=== PATIENT | female | born 1960 | race Caucasian/White ===

== ENCOUNTER 2017-10-16 04:22 | Inpatient (IN) | payer MEDICAID, OTHER ==
[2017-10-16] VITALS (32 sets, daily range): BP systolic 82–131; BP diastolic 30–75
[~2017-10-16] VITALS: Ht 162.6 cm; Wt 124.0 kg
[2017-10-16 05:01] LABS: Hemoglobin 8.2 g/dL (12.2-16.2); Mean Corpuscular Hemoglobin 30.8 pg (28.0-32.0)
[2017-10-16 05:03] LABS: Hematocrit 26.8 % (36.0-46.0); Mean Corpuscular Hgb Conc. 30.7 g/dL (32.0-36.0); Mean Corpuscular Volume 100.4 fL (80.0-100.0); Platelet Count (auto) 169 10^3/uL (140-450); Red Blood Cells 2.67 10^6/uL (4.0-5.20); Red Cell Distribution Width 16.2 % (11.8-14.3); White Blood Cell 21.7 10^3/uL (4.4-10.8)
[2017-10-16] MEDS: EPINEPHrine HCL 250 ML IV SCH (05:03)
[2017-10-16] MEDS ORDERED: SODIUM BICARBONATE 8.4% INJ 50ML SYRINGE ONE ×4 (05:05→12:32)
[2017-10-16 05:10] LABS: Albumin 2.6 g/dL (3.4-5.0); Calcium 7.8 mg/dL (8.5-10.1); Magnesium 2.9 mg/dL (1.6-2.6)
[2017-10-16] MEDS ORDERED: SODIUM BICARBONATE 50ML VIAL 100 ML in D5W 5% 1,000 ML IV ONE (05:15)
[2017-10-16] MEDS ORDERED: cefTRIAXone 1GM/10ml IVPUSH 10 ML IV ONE (05:15)
[2017-10-16] MEDS ORDERED: VANCOMYCIN 1GM/250ML 250 ML IV ONE (05:15)
[2017-10-16 05:18] LABS: Basophils % (manual) 0 (0.0-2.0); Bilirubin, Total 1.1 mg/dL (0.2-1.0); Eosinophils % (manual) 0 (0-7); Myelocytes % 0; Total Protein 7.4 g/dL (6.4-8.2)
[2017-10-16 05:19] LABS: Blast Cells 0; Promyelocytes % 0; Reactive Lymphocytes 0
[2017-10-16 05:21] LABS: BUN/Creatinine Ratio 11.3
[2017-10-16 05:24] LABS: Potassium 6.3 mmol/L (3.5-5.1)
[2017-10-16] MEDS ORDERED: DEXTROSE (50%) 50ML SYRG IV ONE (05:30)
[2017-10-16] MEDS ORDERED: InsuLIN REG 1unit/0.01ml Soln (100units/ml) IV ONE (05:30)
[2017-10-16] MEDS ORDERED: DEXTROSE 50% SYRINGE 50 ML IV ONE (05:31)
[2017-10-16 05:39] LABS: Band Neutrophils % (manual) 3; Lymphocytes % (manual) 19 (10.0-50.0); Metamyelocytes % 1; Monocytes % (manual) 8 (0-12)
[2017-10-16] MEDS ORDERED: ONDANSETRON HCL 4 MG/2 ML VIAL IV ONE (06:15)
[2017-10-16] MEDS ORDERED: MORPHINE SULFATE 4 MG/ML SYR/VIAL IV ONE (06:15)
[2017-10-16 06:48] LABS: Alcohol, Urine < 3.0 mg/dL (0-5); Amphetamine Screen, Urine NEGATIVE (NEGATIVE); Barbiturate Scree,Urine NEGATIVE (NEGATIVE); Benzodiazephine Screen, Urine NEGATIVE (NEGATIVE); Cannabinoid Screen, Urine NEGATIVE (NEGATIVE); Cocaine Screen, Urine NEGATIVE (NEGATIVE); Opiate Scree,Urine NEGATIVE (NEGATIVE); Phencyclidine Screen, Urine NEGATIVE (NEGATIVE)
[2017-10-16 06:49] LABS: Lactic Acid w/Reflex 8.6 mmol/L (0.4-2.0)
[2017-10-16 06:59] LABS: Urine Bacteria MANY /hpf (None Seen); Urine Blood 2+ /uL (Negative); Urine Specific Gravity 1.013 (1.001-1.035); Urine WBC 14625 /hpf (0 - 5); Urine WBC Clumps PRESENT /hpf (None Seen)
[2017-10-16] MEDS ORDERED: SODIUM BICARBONATE 50ML VIAL 100 ML in SODIUM CHL 0.9% 1,000 ML IV SCH (07:00)
[2017-10-16] MEDS ORDERED: NITROGLYCERIN 0.4 MG SL TAB SL PRN (07:00)
[2017-10-16] MEDS ORDERED: ONDANSETRON HCL 4 MG/2 ML VIAL IV PRN (07:00)
[2017-10-16] MEDS ORDERED: ACETAMINOPHEN 325 MG TAB PO PRN (07:00)
[2017-10-16] MEDS ORDERED: MORPHINE SULFATE 4 MG/ML SYR/VIAL IV PRN (07:00)
[2017-10-16] MEDS ORDERED: MANNITOL 20% SOLN 100 gm/500ml 250 ML IV ONE (07:15)
[2017-10-16] MEDS ORDERED: DEXAMETHASONE SOD PHOS 10MG/1ML VIAL INJ IV ONE (07:15)
[2017-10-16] MEDS ORDERED: SODIUM BICARBONATE 8.4 % INJ 50ML VIAL IV ONE ×2 (07:30→12:45)
[2017-10-16] MEDS ORDERED: SODIUM BICARB IV SCH ×2 (08:00→15:30)
[2017-10-16] MEDS ORDERED: D5W IV SCH ×2 (08:00→15:30)
[2017-10-16] MEDS ORDERED: HEPARIN 1,000 UNITS/ml 1ML VIAL ONE (08:14)
[2017-10-16] MEDS ORDERED: MANNITOL 20 % (20GM/100ML) 500 ML IV ONE (08:23)
[2017-10-16] MEDS ORDERED: HEPARIN 1,000 UNITS/ml 1ML VIAL IV ONE (08:30)
[2017-10-16] MEDS: PIPERACILLIN-TAZOB 2.25GM 50 ML IV SCH ×3 (09:07→21:55)
[2017-10-16] MEDS: PANTOPRAZOLE 40 MG/10 ML VIAL IV SCH (09:12)
[2017-10-16] MEDS: ENOXAPARIN SOD 30 MG/0.3 ML SYRINGE SC SCH (09:12)
[2017-10-16] MEDS ORDERED: NOREPINEPHRINE 8 MG/250ML KIT 250 ML IV ONE (09:21)
[2017-10-16] MEDS ORDERED: MIDAZOLAM DRIP 50 mg/50mL 50 ML IV ONE (09:21)
[2017-10-16] MEDS: MIDAZOLAM DRIP 50 mg/50mL 50 ML IV SCH ×2 (09:25→23:31)
[2017-10-16] MEDS: NOREPINEPHRINE 8 MG/250ML KIT 250 ML IV SCH (09:25)
[2017-10-16] MEDS: LINEZOLID 600 MG/300 ML IV BAG IV SCH ×2 (10:12→21:55)
[2017-10-16] MEDS ORDERED: CALCIUM CHLOR(10%) 100MG/ML 10ML SYRINGE IV ONE ×2 (12:41→17:38)
[2017-10-16] MEDS ORDERED: EPINEPHrine HCL 1 MG/10 ML SYRG IV ONE ×2 (12:41→17:38)
[2017-10-16] MEDS ORDERED: SODIUM BICARBONATE 8.4% INJ 50ML SYRINGE IV ONE ×2 (12:41→17:38)
[2017-10-16] MEDS ORDERED: AMIODARONE HCL (50 MG/ ML) 3 ML VIAL IV ONE (12:41)
[2017-10-16] MEDS ORDERED: ATROPINE SULF 0.5 MG/5ML SYR IV ONE (12:41)
[2017-10-16] MEDS ORDERED: DOPamine 1600mCg/ml 400MG/250ml NSorD5 KIT/BAG IV ONE (17:38)
[2017-10-16 18:49] LABS: Calcium 5.9 mg/dL (8.5-10.1)
[2017-10-16 18:51] LABS: Potassium 2.9 mmol/L (3.5-5.1)
[2017-10-16 19:08] LABS: BUN/Creatinine Ratio 11.4
[2017-10-16] MEDS: POTASSIUM CHL 20MEQ/100ML 100 ML IV SCH ×2 (20:09→20:34)
[2017-10-16] MEDS: SODIUM CHLORIDE 0.9% 1,000 ML IV SCH (20:09)
[2017-10-17] VITALS (107 sets, daily range): BP systolic 72–166; BP diastolic 38–93
[2017-10-17] MEDS: NOREPINEPHRINE 8 MG/250ML KIT 250 ML IV SCH ×4 (03:24→21:15)
[2017-10-17 04:09] LABS: Hemoglobin 7.6 g/dL (12.2-16.2); Mean Corpuscular Hgb Conc. 33.7 g/dL (32.0-36.0); Red Cell Distribution Width 14.7 % (11.8-14.3)
[2017-10-17 04:11] LABS: Hematocrit 22.6 % (36.0-46.0); Mean Corpuscular Hemoglobin 30.3 pg (28.0-32.0); Mean Corpuscular Volume 89.9 fL (80.0-100.0); Red Blood Cells 2.51 10^6/uL (4.0-5.20)
[2017-10-17] MEDS: MIDAZOLAM DRIP 50 mg/50mL 50 ML IV SCH ×4 (04:18→22:35)
[2017-10-17 04:20] LABS: Albumin 2.3 g/dL (3.4-5.0); Platelet Count (auto) 94 10^3/uL (140-450); Potassium 3.6 mmol/L (3.5-5.1); White Blood Cell 32.1 10^3/uL (4.4-10.8)
[2017-10-17 04:23] LABS: Basophils % (manual) 0 (0.0-2.0); Blast Cells 0; Eosinophils % (manual) 0 (0-7); Metamyelocytes % 0; Myelocytes % 0; Promyelocytes % 0; Reactive Lymphocytes 0
[2017-10-17 04:28] LABS: Bilirubin, Total 0.9 mg/dL (0.2-1.0); Total Protein 6.2 g/dL (6.4-8.2)
[2017-10-17 04:43] LABS: BUN/Creatinine Ratio 11.9
[2017-10-17 04:44] LABS: Calcium 5.3 mg/dL (8.5-10.1)
[2017-10-17 05:06] LABS: Band Neutrophils % (manual) 18; Lymphocytes % (manual) 1 (10.0-50.0)
[2017-10-17 05:07] LABS: Monocytes % (manual) 4 (0-12)
[2017-10-17] MEDS ORDERED: CALCIUM GLUC 4.65meq/50ml D5AE 50 ML IV ONE (05:30)
[2017-10-17] MEDS: PIPERACILLIN-TAZOB 2.25GM 50 ML IV SCH ×3 (06:00→22:00)
[2017-10-17] MEDS: SODIUM CHLORIDE 0.9% 1,000 ML IV SCH ×2 (06:35→16:24)
[2017-10-17] MEDS ORDERED: SODIUM CHL 0.9% 1000 ML BAG XX ONE (07:45)
[2017-10-17] MEDS: PANTOPRAZOLE 40 MG/10 ML VIAL IV SCH (09:58)
[2017-10-17] MEDS: LINEZOLID 600MG/300ML 300 ML IV SCH ×2 (09:59→22:00)
[2017-10-17] MEDS: EPINEPHrine HCL 250 ML IV SCH (10:03)
[2017-10-17 10:25] LABS: Hematocrit 25.9 % (36.0-46.0); Hemoglobin 8.5 g/dL (12.2-16.2)
[2017-10-17] MEDS: ENOXAPARIN SOD 30 MG/0.3 ML SYRINGE SC SCH (10:27)
[2017-10-17 11:41] LABS: Lactic Acid w/Reflex 11.6 mmol/L (0.4-2.0)
[2017-10-17] MEDS ORDERED: SODIUM CHLORIDE 0.9% 1,000 ML IV ONE (13:00)
[2017-10-17] MEDS ORDERED: CALCIUM CHL 100MG/ML 1,000 MG in D5W 5% 100 ML IV ONE (13:00)
[2017-10-17 15:16] LABS: INR 1.76 (0.9-1.15); Prothrombin Time 19.3 sec (9.37-12.3)
[2017-10-18] VITALS (105 sets, daily range): BP systolic 81–217; BP diastolic 42–109
[2017-10-18] MEDS: PIPERACILLIN-TAZOB 2.25GM 50 ML IV SCH ×3 (06:00→22:01)
[2017-10-18 09:44] LABS: Hematocrit 20.2 % (36.0-46.0)
[2017-10-18 09:46] LABS: Mean Corpuscular Hgb Conc. 32.6 g/dL (32.0-36.0); Platelet Count (auto) 76 10^3/uL (140-450); Red Blood Cells 2.19 10^6/uL (4.0-5.20); Red Cell Distribution Width 14.9 % (11.8-14.3)
[2017-10-18 09:51] LABS: INR 1.27 (0.9-1.15); Prothrombin Time 13.9 sec (9.37-12.3)
[2017-10-18 10:03] LABS: Hemoglobin 6.6 g/dL (12.2-16.2); White Blood Cell 32.8 10^3/uL (4.4-10.8)
[2017-10-18 10:06] LABS: BUN/Creatinine Ratio 10.9; Calcium 6.1 mg/dL (8.5-10.1); Potassium 3.6 mmol/L (3.5-5.1)
[2017-10-18 10:09] LABS: Basophils % (manual) 0 (0.0-2.0); Eosinophils % (manual) 0 (0-7)
[2017-10-18 10:09] LABS: Lactic Acid w/Reflex 2.1 mmol/L (0.4-2.0)
[2017-10-18] MEDS: EPINEPHrine HCL 250 ML IV SCH (10:09)
[2017-10-18 10:10] LABS: Blast Cells 0; Metamyelocytes % 0; Myelocytes % 0; Promyelocytes % 0; Reactive Lymphocytes 0
[2017-10-18] MEDS: SODIUM CHLORIDE 0.9% 1,000 ML IV SCH (10:10)
[2017-10-18] MEDS: PANTOPRAZOLE 40 MG/10 ML VIAL IV SCH (10:48)
[2017-10-18] MEDS: MIDAZOLAM DRIP 50 mg/50mL 50 ML IV SCH ×2 (10:54→22:01)
[2017-10-18 12:35] LABS: Band Neutrophils % (manual) 11; Lymphocytes % (manual) 17 (10.0-50.0); Monocytes % (manual) 7 (0-12)
[2017-10-18] MEDS: NOREPINEPHRINE BITARTRATE 16 MG in D5W 5% 250 ML IV SCH (13:04)
[2017-10-18] MEDS ORDERED: PIPERACILLIN-TAZOB 0.75 GM in D5W 5% 50 ML IV SCH (13:30)
[2017-10-19] VITALS (105 sets, daily range): BP systolic 62–195; BP diastolic 34–100
[2017-10-19] MEDS: SODIUM CHLORIDE 0.9% 1,000 ML IV SCH ×3 (00:54→20:00)
[2017-10-19] MEDS: EPINEPHrine HCL 250 ML IV SCH (04:30)
[2017-10-19 04:35] LABS: Basophils # (auto) 0 uL; Basophils % (auto) 0.1 % (0.0-2.0); Eosinophils # (auto) 0 uL; Eosinophils % (auto) 0.1 % (0.0-7.0); Hematocrit 27.3 % (36.0-46.0); Lymphocytes # (auto) 2.1 uL; Lymphocytes % (auto) 7.3 % (10.0-50.0); Mean Corpuscular Hemoglobin 30.8 pg (28.0-32.0); Mean Corpuscular Hgb Conc. 32.9 g/dL (32.0-36.0); Mean Corpuscular Volume 93.7 fL (80.0-100.0); Monocytes # (auto) 1.2 uL; Neutrophils # (auto) 25.9 uL; Neutrophils % (auto) 88.5 % (37.0-80.0); Nucleated Red Blood Cells % 0.2 %; Platelet Count (auto) 73 10^3/uL (140-450); Red Blood Cells 2.91 10^6/uL (4.0-5.20); Red Cell Distribution Width 15.4 % (11.8-14.3); White Blood Cell 29.3 10^3/uL (4.4-10.8)
[2017-10-19 05:05] LABS: BUN/Creatinine Ratio 11.6; Magnesium 1.8 mg/dL (1.6-2.6); Potassium 3.9 mmol/L (3.5-5.1)
[2017-10-19] MEDS ORDERED: CALCIUM GLUC 4.65meq/50ml D5AE 50 ML IV ONE (06:15)
[2017-10-19] MEDS: PIPERACILLIN-TAZOB 2.25GM 50 ML IV SCH ×3 (06:39→22:24)
[2017-10-19] MEDS: NOREPINEPHRINE BITARTRATE 16 MG in D5W 5% 250 ML IV SCH ×2 (07:51→21:00)
[2017-10-19] MEDS: PANTOPRAZOLE 40 MG/10 ML VIAL IV SCH (10:31)
[2017-10-19] MEDS ORDERED: Novasource Renal 1 Liter GT SCH (16:30)
[2017-10-20] VITALS (106 sets, daily range): BP systolic 77–138; BP diastolic 48–83
[2017-10-20] MEDS: EPINEPHrine HCL 250 ML IV SCH (05:03)
[2017-10-20] MEDS: PIPERACILLIN-TAZOB 2.25GM 50 ML IV SCH (06:00)
[2017-10-20 06:26] LABS: Hematocrit 23.9 % (36.0-46.0); Platelet Count (auto) 81 10^3/uL (140-450); White Blood Cell 22.6 10^3/uL (4.4-10.8)
[2017-10-20 06:31] LABS: Mean Corpuscular Hemoglobin 31.2 pg (28.0-32.0); Mean Corpuscular Hgb Conc. 33.3 g/dL (32.0-36.0); Mean Corpuscular Volume 93.7 fL (80.0-100.0); Red Blood Cells 2.55 10^6/uL (4.0-5.20); Red Cell Distribution Width 15.1 % (11.8-14.3)
[2017-10-20 06:44] LABS: Band Neutrophils % (manual) 0; Basophils % (manual) 0 (0.0-2.0); Blast Cells 0; Metamyelocytes % 0; Myelocytes % 0; Promyelocytes % 0; Reactive Lymphocytes 0
[2017-10-20 06:55] LABS: BUN/Creatinine Ratio 11.8; Calcium 6.2 mg/dL (8.5-10.1); Potassium 3.2 mmol/L (3.5-5.1)
[2017-10-20 07:03] LABS: Eosinophils % (manual) 2 (0-7); Lymphocytes % (manual) 15 (10.0-50.0); Monocytes % (manual) 6 (0-12)
[2017-10-20] MEDS: NOREPINEPHRINE BITARTRATE 16 MG in D5W 5% 250 ML IV SCH (07:51)
[2017-10-20] MEDS: MIDAZOLAM DRIP 50 mg/50mL 50 ML IV SCH (09:14)
[2017-10-20] MEDS ORDERED: NOREPINEPHRINE 8 MG/250ML KIT 250 ML IV ONE (09:36)
[2017-10-20] MEDS: PANTOPRAZOLE 40 MG/10 ML VIAL IV SCH (09:55)
[2017-10-20] MEDS: NOREPINEPHRINE 8 MG/250ML KIT 250 ML IV SCH ×2 (10:00→21:25)
[2017-10-20] MEDS: SODIUM CHLORIDE 0.9% 1,000 ML IV SCH ×2 (14:35→22:23)
[2017-10-20] MEDS: POTASSIUM CHL 10% (20 MEQ/15ML) 15ml ORAL SOLN GT SCH ×2 (16:00→22:23)
[2017-10-20] MEDS: cefTRIAXone 1GM/10ml IVPUSH 10 ML IV SCH (16:00)
[2017-10-21] VITALS (80 sets, daily range): BP systolic 67–138; BP diastolic 36–80
[2017-10-21 03:49] LABS: Basophils # (auto) 0 uL; Basophils % (auto) 0.2 % (0.0-2.0); Eosinophils # (auto) 0.2 uL; Eosinophils % (auto) 0.8 % (0.0-7.0); Hematocrit 25.9 % (36.0-46.0); Hemoglobin 8.5 g/dL (12.2-16.2); Lymphocytes # (auto) 2.8 uL; Mean Corpuscular Hemoglobin 30.9 pg (28.0-32.0); Mean Corpuscular Hgb Conc. 32.9 g/dL (32.0-36.0); Mean Corpuscular Volume 93.9 fL (80.0-100.0); Monocytes # (auto) 0.9 uL; Monocytes % (auto) 4.8 % (0.0-12.0); Neutrophils # (auto) 14.8 uL; Neutrophils % (auto) 79.2 % (37.0-80.0); Nucleated Red Blood Cells % 0.4 %; Platelet Count (auto) 81 10^3/uL (140-450); Red Blood Cells 2.76 10^6/uL (4.0-5.20); Red Cell Distribution Width 15.3 % (11.8-14.3); White Blood Cell 18.6 10^3/uL (4.4-10.8)
[2017-10-21 04:05] LABS: BUN/Creatinine Ratio 12.5; Calcium 6.2 mg/dL (8.5-10.1); Potassium 3.4 mmol/L (3.5-5.1)
[2017-10-21] MEDS: EPINEPHrine HCL 250 ML IV SCH (05:03)
[2017-10-21] MEDS: NOREPINEPHRINE 8 MG/250ML KIT 250 ML IV SCH (06:34)
[2017-10-21] MEDS: cefTRIAXone 1GM/10ml IVPUSH 10 ML IV SCH (08:50)
[2017-10-21] MEDS: MIDAZOLAM DRIP 50 mg/50mL 50 ML IV SCH (08:50)
[2017-10-21] MEDS ORDERED: SODIUM CHLORIDE 0.9% 1,000 ML IV ONE (09:00)
[2017-10-21] MEDS: PANTOPRAZOLE 40 MG/10 ML VIAL IV SCH (10:14)
[2017-10-21] MEDS ORDERED: SODIUM CHLORIDE 0.9% 2,000 ML IV ONE (10:15)
[2017-10-21] MEDS ORDERED: MORPHINE SULFATE 4 MG/ML SYR/VIAL IV PRN (17:30)
[2017-10-21] MEDS ORDERED: LORazepam 2MG/ML-1ML VIAL IV PRN (17:30)
== END 2017-10-21 18:34 | disposition expired | DRG 720 ==
LOC: ER 04:22 → EDBD 04:22 → TELE 04:23 → EDBD 04:23 → ICU WEST 18:16
PROVIDERS: ADMIT Nurse Practitioner; ATTEND Internal Medicine Pulmonary Disease
PROC: 5A1955Z Respiratory Ventilation, Greater than 96 Consecutive Hours (ICD-10-PCS; principal; 2017-10-16)
PROC: 5A12012 Performance of Cardiac Output, Single, Manual (ICD-10-PCS; 2017-10-16)
PROC: 0BH17EZ Insertion of Endotracheal Airway into Trachea, Via Natural or Artificial Opening (ICD-10-PCS; 2017-10-16)
PROC: 02HV33Z Insertion of Infusion Device into Superior Vena Cava, Percutaneous Approach (ICD-10-PCS; 2017-10-16)
PROC: 5A1D70Z Performance of Urinary Filtration, Intermittent, Less than 6 Hours Per Day (ICD-10-PCS; 2017-10-16)
PROC: 30233N1 Transfusion of Nonautologous Red Blood Cells into Peripheral Vein, Percutaneous Approach (ICD-10-PCS; 2017-10-18)
PROC: 5A1D70Z Performance of Urinary Filtration, Intermittent, Less than 6 Hours Per Day (ICD-10-PCS; 2017-10-19)
DX: A41.51 Sepsis due to Escherichia coli [E. coli] (principal); J96.00 Acute respiratory failure, unspecified whether with hypoxia or hypercapnia; N17.0 Acute kidney failure with tubular necrosis; G93.6 Cerebral edema; I46.9 Cardiac arrest, cause unspecified; J90 Pleural effusion, not elsewhere classified; G93.1 Anoxic brain damage, not elsewhere classified; R65.21 Severe sepsis with septic shock; J18.9 Pneumonia, unspecified organism; E43 Unspecified severe protein-calorie malnutrition; D68.9 Coagulation defect, unspecified; N18.4 Chronic kidney disease, stage 4 (severe); E87.5 Hyperkalemia; N10 Acute pyelonephritis; I12.9 Hypertensive chronic kidney disease with stage 1 through stage 4 chronic kidney disease, or unspecified chronic kidney disease; F17.200 Nicotine dependence, unspecified, uncomplicated; E87.1 Hypo-osmolality and hyponatremia; E83.51 Hypocalcemia; E66.01 Morbid (severe) obesity due to excess calories; E11.22 Type 2 diabetes mellitus with diabetic chronic kidney disease; T68.XXXA Hypothermia, initial encounter; D69.6 Thrombocytopenia, unspecified; Z83.3 Family history of diabetes mellitus; Z91.19 Patient's noncompliance with other medical treatment and regimen; Z99.2 Dependence on renal dialysis; Z68.42 Body mass index [BMI] 45.0-49.9, adult
CPT/HCPCS: 36415; 36430; 36600; 70450; 71045; 74176; 80048; 80053; 80307; 81001; 82805; 83036; 83605; 83735; 84132; 84443; 84484; 85007; 85014; 85018; 85025; 85027; 85610; 86850; 86900; 86901; 86920; 87040; 87070; 87077; 87081; 87086; 87088; 87186; 87205; 90935; 92950; 93005; 93306; 94002; 94003; 94761; 95819; 96361; 96365; 96375; C9113; J0171; J0461; J0610; J1100; J1642; J2250; J2543; J3480; J7060